=== PATIENT | male | born 1940 | race Caucasian/White ===

== ENCOUNTER 2018-03-23 15:48 | Inpatient (IN) | payer MEDICARE ==
[~2018-03-23] VITALS: Ht 170.2 cm; Wt 72.6 kg
[2018-03-23 16:45] LABS: BASOPHILS 0.1 % (0-2); EOSINOPHILS 1.9 % (0-7); HEMATOCRIT 39.7 % (42.0-54.0); HEMOGLOBIN 12.9 g/dL (13.5-17.5); IMMATURE GRANULOCYTES 0.3 % (0-5); LYMPHOCYTES 13.9 % (15-50); MCH 31.9 pg (26.0-34.0); MCHC 32.5 g/dL (31.0-37.0); MCV 98.3 fL (80.0-100.0); MEAN PLATELET VOLUME 9.5 fL (7.4-10.4); MONOCYTES 9.2 % (2-11); NEUTROPHILS 74.6 % (40-80); PLATELET COUNT 306 10x3/uL (130-400); RBC 4.04 10x6/uL (4.20-6.10); RDW 13.5 % (11.5-14.5); WBC 7.7 10x3/uL (4.8-10.8)
[2018-03-23 17:17] LABS: ALBUMIN 3.6 g/dL (3.4-5.0); ALKALINE PHOSPHATASE 65 U/L (46-116); ALT (SGPT) 18 U/L (10-68); BILIRUBIN - TOTAL 0.33 mg/dL (0.2-1.3); CALC OSMOLALITY 285 mosm/kg (275-300); CALCIUM 8.8 mg/dL (8.5-10.1); CARBON DIOXIDE 32.3 mmol/L (21.0-32.0); CHLORIDE - SERUM 103 mmol/L (98-107); CREATININE - SERUM 1.1 mg/dL (0.6-1.3); GLUCOSE 110 mg/dL (74-106); POTASSIUM - SERUM 4.3 mmol/L (3.5-5.1); PROTEIN - SERUM 6.9 g/dL (6.4-8.2); SODIUM 140 mmol/L (136-145); UREA NITROGEN 30 mg/dL (7-18); eGFR NON AFRICAN AMERICAN 69 mL/min (90-120)
[2018-03-23 17:22] LABS: CKMB 1.8 U/L (0.0-3.6); CREATINE KINASE 54 UL (21-232); PRO BNP 294 pg/mL (0-450); TROPONIN-I < 0.017 ng/mL (0.000-0.060)
[2018-03-23 18:06] LABS: APPEARANCE CLEAR (CLEAR); BILIRUBIN NEGATIVE (NEGATIVE); COLOR DK YELLOW (YELLOW); GLUCOSE NEGATIVE (NEGATIVE); KETONE NEGATIVE (NEGATIVE); NITRITE NEGATIVE (NEGATIVE); PROTEIN NEGATIVE (NEGATIVE); UROBILINOGEN NORMAL (NORMAL)
[2018-03-23] MEDS ORDERED: STALEVO 200 TAB1 TAB PO (21:21)
[2018-03-23] MEDS ORDERED: ISOPTO ATROPINE5 ML EACH EYE (21:22)
[2018-03-23] MEDS ORDERED: NORCO 7.5/325 T1 TA1 PO (21:24)
[2018-03-23] MEDS ORDERED: PROSCAR5 MG PO (21:24)
[2018-03-23] MEDS ORDERED: CYMBALTA30 MG PO (21:25)
[2018-03-23] MEDS ORDERED: VITAMIN D31000 UNIT PO (21:26)
[2018-03-23] MEDS ORDERED: BIOTIN5 MG PO (21:27)
[2018-03-23] MEDS ORDERED: FOLTX TABLET1 EACH PO (21:27)
[2018-03-23] MEDS ORDERED: CENTRUM SILVER1 TA1 PO (21:27)
[2018-03-23] MEDS ORDERED: BAYER CHEWABLE81 MG PO (21:28)
[2018-03-23] MEDS ORDERED: MIRALAX17 GM PO (21:28)
[2018-03-23] MEDS ORDERED: MELATONIN 3 MG1 TAB PO (21:29)
[2018-03-23] MEDS ORDERED: ARICEPT5 MG PO (21:29)
[2018-03-23] MEDS ORDERED: CARDIZEM CD180 MG PO (21:30)
[2018-03-23] MEDS ORDERED: IBUPROFEN400 MG PO (21:31)
[2018-03-23 23:24] VITALS: BP 186/98; BMI 25.1
[2018-03-24] VITALS (7 sets, daily range): BP systolic 158–195; BP diastolic 70–88; BMI 25.0
[2018-03-24 10:15] LABS: HEMATOCRIT 37.7 % (42.0-54.0); HEMOGLOBIN 12.8 g/dL (13.5-17.5); LYMPHOCYTES 14.1 % (15-50); MCH 32.5 pg (26.0-34.0); MEAN PLATELET VOLUME 8.2 fL (7.4-10.4); NEUTROPHILS 76.6 % (40-80); PLATELET COUNT 289 10x3/uL (130-400); RBC 3.94 10x6/uL (4.20-6.10); RDW 12.7 % (11.5-14.5); WBC 7.2 10x3/uL (4.8-10.8)
[2018-03-24 10:19] LABS: MCV 95.7 fL (80.0-100.0)
[2018-03-24 10:27] LABS: ALBUMIN 3.2 g/dL (3.4-5.0); ALKALINE PHOSPHATASE 56 U/L (46-116); BILIRUBIN - TOTAL 0.34 mg/dL (0.2-1.3); CALCIUM 8.4 mg/dL (8.5-10.1); CHLORIDE - SERUM 106 mmol/L (98-107); CREATININE - SERUM 0.9 mg/dL (0.6-1.3); GLUCOSE 98 mg/dL (74-106); POTASSIUM - SERUM 4.2 mmol/L (3.5-5.1); PROTEIN - SERUM 6.2 g/dL (6.4-8.2); SODIUM 140 mmol/L (136-145); eGFR NON AFRICAN AMERICAN 87 mL/min (90-120)
[2018-03-24 10:28] LABS: ALT (SGPT) 11 U/L (10-68); CALC OSMOLALITY 280 mosm/kg (275-300); UREA NITROGEN 18 mg/dL (7-18)
[2018-03-24 11:16] LABS: % SATURATION 33 % (15-55); IRON 75 ug/dl (35-150); TOTAL IRON BIND CAPACITY 224 ug/dl (260-445); UNSAT IRON BIND CAPACITY 149 ug/dl (150-375)
[2018-03-24 18:03] LABS: APPEARANCE CLEAR (CLEAR); BILIRUBIN NEGATIVE (NEGATIVE); COLOR YELLOW (YELLOW); GLUCOSE NEGATIVE (NEGATIVE); KETONE NEGATIVE (NEGATIVE); NITRITE NEGATIVE (NEGATIVE); PROTEIN NEGATIVE (NEGATIVE); SPECIFIC GRAVITY 1.015 (1.005-1.020); UROBILINOGEN NORMAL (NORMAL)
[2018-03-25 05:04] VITALS: BP 148/84
[2018-03-25 06:19] LABS: BASOPHILS 0.4 % (0-2); EOSINOPHILS 4.2 % (0-7); HEMATOCRIT 39.7 % (42.0-54.0); HEMOGLOBIN 12.9 g/dL (13.5-17.5); IMMATURE GRANULOCYTES 0.3 % (0-5); LYMPHOCYTES 17.6 % (15-50); MCH 31.5 pg (26.0-34.0); MCHC 32.5 g/dL (31.0-37.0); MCV 97.1 fL (80.0-100.0); MEAN PLATELET VOLUME 9.8 fL (7.4-10.4); MONOCYTES 9.1 % (2-11); NEUTROPHILS 68.4 % (40-80); PLATELET COUNT 303 10x3/uL (130-400); RBC 4.09 10x6/uL (4.20-6.10); RDW 13.1 % (11.5-14.5); WBC 7.1 10x3/uL (4.8-10.8)
[2018-03-25 06:36] LABS: ALBUMIN 3.2 g/dL (3.4-5.0); ALKALINE PHOSPHATASE 56 U/L (46-116); ALT (SGPT) 11 U/L (10-68); BILIRUBIN - TOTAL 0.39 mg/dL (0.2-1.3); CALC OSMOLALITY 278 mosm/kg (275-300); CALCIUM 8.6 mg/dL (8.5-10.1); CHLORIDE - SERUM 104 mmol/L (98-107); CREATININE - SERUM 0.9 mg/dL (0.6-1.3); GLUCOSE 92 mg/dL (74-106); POTASSIUM - SERUM 3.9 mmol/L (3.5-5.1); PROTEIN - SERUM 6.3 g/dL (6.4-8.2); SODIUM 139 mmol/L (136-145); UREA NITROGEN 16 mg/dL (7-18); eGFR NON AFRICAN AMERICAN 87 mL/min (90-120)
[2018-03-25 07:23] LABS: FOLATE (FOLIC ACID) - SERUM >20.0 ng/mL (>3.0)
[2018-03-25 08:46] VITALS: BP 184/84
[2018-03-25 16:38] VITALS: BP 137/74
[2018-03-25 20:00] VITALS: BP 101/56
[2018-03-26] VITALS: BP 135/74
[2018-03-26 05:53] VITALS: BP 127/63
[2018-03-26 06:09] LABS: BASOPHILS 0.2 % (0-2); EOSINOPHILS 1.8 % (0-7); HEMATOCRIT 38.2 % (42.0-54.0); HEMOGLOBIN 12.5 g/dL (13.5-17.5); IMMATURE GRANULOCYTES 0.1 % (0-5); LYMPHOCYTES 14.3 % (15-50); MCH 31.5 pg (26.0-34.0); MCHC 32.7 g/dL (31.0-37.0); MCV 96.2 fL (80.0-100.0); MEAN PLATELET VOLUME 9.7 fL (7.4-10.4); NEUTROPHILS 76.6 % (40-80); PLATELET COUNT 307 10x3/uL (130-400); RBC 3.97 10x6/uL (4.20-6.10); RDW 13.2 % (11.5-14.5); WBC 8.5 10x3/uL (4.8-10.8)
[2018-03-26 07:04] LABS: ALBUMIN 3.1 g/dL (3.4-5.0); ALKALINE PHOSPHATASE 53 U/L (46-116); ALT (SGPT) 13 U/L (10-68); BILIRUBIN - TOTAL 0.39 mg/dL (0.2-1.3); CALC OSMOLALITY 279 mosm/kg (275-300); CALCIUM 8.5 mg/dL (8.5-10.1); CARBON DIOXIDE 27.5 mmol/L (21.0-32.0); CHLORIDE - SERUM 105 mmol/L (98-107); CREATININE - SERUM 0.9 mg/dL (0.6-1.3); GLUCOSE 93 mg/dL (74-106); SODIUM 140 mmol/L (136-145); UREA NITROGEN 16 mg/dL (7-18); eGFR NON AFRICAN AMERICAN 87 mL/min (90-120)
[2018-03-26 10:08] VITALS: BP 103/53
[2018-03-26 20:00] VITALS: BP 135/66
[2018-03-27 05:54] VITALS: BP 146/64
[2018-03-27 06:00] LABS: BASOPHILS 0.2 % (0-2); EOSINOPHILS 2.4 % (0-7); HEMATOCRIT 38.7 % (42.0-54.0); HEMOGLOBIN 12.8 g/dL (13.5-17.5); IMMATURE GRANULOCYTES 0.2 % (0-5); LYMPHOCYTES 10.3 % (15-50); MCH 32.1 pg (26.0-34.0); MCHC 33.1 g/dL (31.0-37.0); MEAN PLATELET VOLUME 9.5 fL (7.4-10.4); MONOCYTES 8.4 % (2-11); NEUTROPHILS 78.5 % (40-80); PLATELET COUNT 291 10x3/uL (130-400); RBC 3.99 10x6/uL (4.20-6.10); RDW 13.5 % (11.5-14.5)
[2018-03-27 06:03] LABS: WBC 11.4 10x3/uL (4.8-10.8)
[2018-03-27 06:35] LABS: ALBUMIN 3.2 g/dL (3.4-5.0); ALKALINE PHOSPHATASE 55 U/L (46-116); BILIRUBIN - TOTAL 0.31 mg/dL (0.2-1.3); CALCIUM 8.6 mg/dL (8.5-10.1); CARBON DIOXIDE 28.6 mmol/L (21.0-32.0); CHLORIDE - SERUM 105 mmol/L (98-107); GLUCOSE 91 mg/dL (74-106); POTASSIUM - SERUM 4.3 mmol/L (3.5-5.1); PROTEIN - SERUM 5.8 g/dL (6.4-8.2); SODIUM 139 mmol/L (136-145); eGFR NON AFRICAN AMERICAN 77 mL/min (90-120)
[2018-03-27 06:41] LABS: ALT (SGPT) 8 U/L (10-68); CALC OSMOLALITY 280 mosm/kg (275-300); UREA NITROGEN 21 mg/dL (7-18)
[2018-03-27 09:21] VITALS: BP 132/64
[2018-03-27 11:57] VITALS: BP 92/71
[2018-03-27 17:49] VITALS: BP 98/58
[2018-03-27 18:03] VITALS: Ht 170.2 cm; Wt 72.6 kg
[2018-03-27 20:00] VITALS: BP 129/55
[2018-03-28 06:14] LABS: BASOPHILS 0.2 % (0-2); EOSINOPHILS 1.5 % (0-7); HEMATOCRIT 37.8 % (42.0-54.0); HEMOGLOBIN 12.3 g/dL (13.5-17.5); IMMATURE GRANULOCYTES 0.2 % (0-5); LYMPHOCYTES 13.2 % (15-50); MCH 31.8 pg (26.0-34.0); MCHC 32.5 g/dL (31.0-37.0); MCV 97.7 fL (80.0-100.0); MEAN PLATELET VOLUME 9.6 fL (7.4-10.4); MONOCYTES 7.5 % (2-11); NEUTROPHILS 77.4 % (40-80); PLATELET COUNT 275 10x3/uL (130-400); RBC 3.87 10x6/uL (4.20-6.10); RDW 13.7 % (11.5-14.5); WBC 9.5 10x3/uL (4.8-10.8)
[2018-03-28 06:37] LABS: ANION GAP 12.4 mmol/L (8-16); BILIRUBIN - TOTAL 0.23 mg/dL (0.2-1.3); CALCIUM 8.6 mg/dL (8.5-10.1); CARBON DIOXIDE 31.1 mmol/L (21.0-32.0); CREATININE - SERUM 1.1 mg/dL (0.6-1.3); POTASSIUM - SERUM 4.5 mmol/L (3.5-5.1); PROTEIN - SERUM 6.1 g/dL (6.4-8.2)
[2018-03-28 10:30] VITALS: BP 134/80
[2018-03-28 13:24] VITALS: BP 101/60
[2018-03-29] VITALS: BP 142/62
[2018-03-29 04:00] VITALS: BP 136/64
[2018-03-29 07:08] LABS: BASOPHILS 0.2 % (0-2); EOSINOPHILS 1.6 % (0-7); HEMATOCRIT 37.7 % (42.0-54.0); HEMOGLOBIN 12.3 g/dL (13.5-17.5); IMMATURE GRANULOCYTES 0.1 % (0-5); LYMPHOCYTES 10.3 % (15-50); MCH 31.7 pg (26.0-34.0); MCHC 32.6 g/dL (31.0-37.0); MCV 97.2 fL (80.0-100.0); MEAN PLATELET VOLUME 9.7 fL (7.4-10.4); MONOCYTES 8.8 % (2-11); PLATELET COUNT 304 10x3/uL (130-400); RBC 3.88 10x6/uL (4.20-6.10); RDW 13.7 % (11.5-14.5); WBC 10.5 10x3/uL (4.8-10.8)
[2018-03-29 07:43] LABS: ALKALINE PHOSPHATASE 49 U/L (46-116); ALT (SGPT) 8 U/L (10-68); BILIRUBIN - TOTAL 0.28 mg/dL (0.2-1.3); CALC OSMOLALITY 284 mosm/kg (275-300); CALCIUM 8.7 mg/dL (8.5-10.1); CARBON DIOXIDE 28.3 mmol/L (21.0-32.0); CHLORIDE - SERUM 105 mmol/L (98-107); CREATININE - SERUM 0.9 mg/dL (0.6-1.3); GLUCOSE 98 mg/dL (74-106); POTASSIUM - SERUM 4.5 mmol/L (3.5-5.1); PROTEIN - SERUM 6.2 g/dL (6.4-8.2); SODIUM 141 mmol/L (136-145); UREA NITROGEN 25 mg/dL (7-18); eGFR NON AFRICAN AMERICAN 87 mL/min (90-120)
[2018-03-29 09:56] VITALS: BP 118/68
[2018-03-29 13:28] VITALS: BP 128/56
[2018-03-29 16:40] VITALS: BP 108/54
[2018-03-29 20:00] VITALS: BP 135/64
[2018-03-30 05:16] VITALS: BP 130/79
[2018-03-30 06:22] LABS: BASOPHILS 0.2 % (0-2); EOSINOPHILS 1.8 % (0-7); HEMOGLOBIN 11.5 g/dL (13.5-17.5); IMMATURE GRANULOCYTES 0.2 % (0-5); LYMPHOCYTES 10.9 % (15-50); MCH 31.6 pg (26.0-34.0); MCHC 32.9 g/dL (31.0-37.0); MCV 96.2 fL (80.0-100.0); MEAN PLATELET VOLUME 9.9 fL (7.4-10.4); MONOCYTES 8.7 % (2-11); NEUTROPHILS 78.2 % (40-80); PLATELET COUNT 305 10x3/uL (130-400); RBC 3.64 10x6/uL (4.20-6.10); RDW 13.7 % (11.5-14.5); WBC 9.3 10x3/uL (4.8-10.8)
[2018-03-30 06:43] LABS: CALC OSMOLALITY 285 mosm/kg (275-300); CALCIUM 8.4 mg/dL (8.5-10.1); CARBON DIOXIDE 28.7 mmol/L (21.0-32.0); CHLORIDE - SERUM 105 mmol/L (98-107); GLUCOSE 97 mg/dL (74-106); POTASSIUM - SERUM 4.5 mmol/L (3.5-5.1); SODIUM 141 mmol/L (136-145); UREA NITROGEN 26 mg/dL (7-18); eGFR NON AFRICAN AMERICAN 77 mL/min (90-120)
[2018-03-30] MEDS ORDERED: Aricept PO (14:06)
[2018-03-30] MEDS ORDERED: FLOMAX0.4 MG PO (14:07)
[2018-03-30] MEDS ORDERED: NORCO 7.5/325 T1 TA1 PO (14:08)
[2018-03-30] MEDS ORDERED: STALEVO 200 TAB1 TAB PO (14:08)
[2018-03-30] MEDS ORDERED: CARDIZEM CD180 MG PO (14:08)
[2018-03-30] MEDS ORDERED: CYMBALTA30 MG PO (14:09)
[2018-03-30] MEDS ORDERED: IBUPROFEN400 MG PO (14:09)
[2018-03-30] MEDS ORDERED: PROSCAR5 MG PO (14:12)
[2018-03-30] MEDS ORDERED: THERAGRAN M [BK1 TAB PO (14:12)
[2018-03-30] MEDS ORDERED: PROTONIX40 MG PO (14:15)
[2018-03-30] MEDS ORDERED: Ditropan XL PO (14:15)
[2018-03-30] MEDS ORDERED: MEGACE400 MG/10 PO (14:15)
[2018-03-30] MEDS ORDERED: COLACE100 MG PO (14:15)
[2018-03-30] MEDS ORDERED: MIRALAX17 GM PO (14:15)
[2018-03-30] MEDS ORDERED: MILK OF MAGNESI30 ML PO (14:16)
== END 2018-03-30 15:49 | DRG 193 ==
LOC: D.ER 15:48 → D.MS 20:06
PROVIDERS: Family Medicine; Internal Medicine Nephrology
DX: J18.9 Pneumonia, unspecified organism (principal); E43 Unspecified severe protein-calorie malnutrition; J44.0 Chronic obstructive pulmonary disease with (acute) lower respiratory infection; N17.9 Acute kidney failure, unspecified; E86.0 Dehydration; R53.1 Weakness; I10 Essential (primary) hypertension; G20 Parkinson's disease; M41.9 Scoliosis, unspecified; H35.30 Unspecified macular degeneration; N40.1 Benign prostatic hyperplasia with lower urinary tract symptoms; N39.498 Other specified urinary incontinence; R35.0 Frequency of micturition; D64.9 Anemia, unspecified; K59.00 Constipation, unspecified; R13.10 Dysphagia, unspecified; Z68.25 Body mass index [BMI] 25.0-25.9, adult